=== PATIENT | female | born 1980 | race Caucasian/White ===

== ENCOUNTER → 2018-04-05 | Outpatient (CLI) | payer OTHER | END | disposition home or self-care (01) | LOC: C.LABSPEC 14:34 | PROVIDERS: ATTEND Obstetrics & Gynecology | DX: O09.521 Supervision of elderly multigravida, first trimester (principal); Z3A.00 Weeks of gestation of pregnancy not specified ==

== ENCOUNTER → 2018-04-08 | Outpatient (CLI) | payer OTHER ==
[2018-04-08 16:33] LABS: BASO % 0.2 %; BASO ABS # 0.02 K/uL (0-0.2); EOS ABS # 0.11 K/uL (0-0.5); HEMATOCRIT 35.7 % (37-47); HEMOGLOBIN 12.3 g/dL (12.0-16.0); IG# 0.04 K/uL (0.00-0.02); LYMPH % 27.9 %; LYMPH ABS # 3.14 K/uL (1.2-3.4); MEAN CELL VOLUME 89.3 fL (80-100); MEAN CORPUSCULAR HEMOGLOBIN 30.8 pg (25-34); MEAN CORPUSCULAR HGB CONC 34.5 g/dl (32-36); MEAN PLATELET VOLUME 10.5 fL (7.4-10.4); MONO % 8.1 %; MONO ABS # 0.91 K/uL (0.11-0.59); NEUT % 62.4 %; NEUT ABS # 7.05 K/uL (1.4-6.5); PLATELET COUNT 250 K/uL (130-400); RED CELL DISTRIBUTION WIDTH CV 12.6 % (11.5-14.5); RED CELL DISTRIBUTION WIDTH SD 40.9 fL (36.4-46.3); WHITE BLOOD COUNT 11.27 K/uL (4.8-10.8)
== END | disposition home or self-care (01) ==
LOC: C.LAB1850 15:43
PROVIDERS: ATTEND Obstetrics & Gynecology
DX: O09.521 Supervision of elderly multigravida, first trimester (principal)

== ENCOUNTER 2018-10-24 02:23 | Inpatient (IN) ==
[2018-10-24] MEDS ORDERED: LACTATED RINGER'S 1,000 ML IV PRN ×2 (02:38→03:54)
[2018-10-24] MEDS ORDERED: LACTATED RINGER'S 1,000 ML IV SCH (02:45)
[2018-10-24 03:02] LABS: Hematocrit (blood only) 34.8 % (37-47); Hemoglobin 11.7 g/dL (12.0-16.0); Mean Corpuscular Volume 91.1 fL (80-100); Mean Platelet Volume 10.6 fL (7.4-10.4); Platelet Count 252 K/uL (130-400); RDW Coefficient of Variation 13.5 % (11.5-14.5); RDW Standard Deviation 44.8 fL (36.4-46.3); Red Blood Count 3.82 M/uL (4.2-5.4); White Blood Count 15.11 K/uL (4.8-10.8)
[2018-10-24 03:04] LABS: Mean Corpuscular Hgb Conc 33.6 g/dL (32-36)
[2018-10-24] MEDS ORDERED: BUPIVACAINE 0.25% 30 ML VIAL ONE (03:07)
[2018-10-24] MEDS ORDERED: fentaNYL citrate 100 MCG/2 ML VIAL ONE (03:08)
[2018-10-24] MEDS ORDERED: ePHEDrine sulfate 50 MG/ML AMP ONE (03:08)
[2018-10-24] MEDS ORDERED: fentaNYL 2MCG/ML ROPIV 1.25MG/ML 100 ML BAG EPI ONE (03:08)
--- NOTE | 2018-10-24 03:53 | Anesthesiology Consultation ---
Date of Service October 24, 2018 Assessment & Plan (1) Encounter for pre-operative examination: Chart Review Chart Review: Acceptable Risk for Surgery and Patient NOT seen in Pre Admission Testing Consults Requested none ASA ASA2 Proposed Anesthesia Anesthesia Type: CSE Risk / Benefits Reviewed With: PT / POA / Parent / Guardian, Accepts Plan and Informed Consent Obtained NPO Date Last Intake of Fluids: 10/24/18 Time Last Intake of Fluids: 03:00 Date Last Intake of Solids: 10/23/18 Time Last Intake of Solids: 20:00 History Height/Weight Height: 5 ft 4 in Weight: 78.018 kg Allergies Allergy/AdvReac Type Severity Reaction Status Date / Time No Known Allergies Allergy Verified 10/24/18 03:02 Medications Home Medications Medication Instructions Recorded Confirmed Last Taken folic acid 1 mg PO DAILY 10/24/18 10/24/18 10/23/18 09:00 vit-iron fum-folic ac 1 tab PO DAILY 10/24/18 10/24/18 10/23/18 09:00 [ Vitamin] Active Medications Generic Name Dose Route Start Last Admin Trade Name Tommieq PRN Reason Stop Dose Admin Lactated Ringer's 1,000 mls @ 999 mls/hr 10/24/18 02:38 10/24/18 03:10 Lr IV 11/23/18 02:37 999 mls/hr .Q1H1M PRN Administration (Pre-Anesthesia) Past Medical History Medical History In vitro fertilization with previous hemorrhage received blood transfusion Social History Smoking Status: Never smoker Do You Dip or Chew Tobacco: No Hx Alcohol Use: No Hx Substance Use: No substance use type: does not use Physical Exam Vital Signs Last Vital Signs Temp 36.5 C 10/24/18 03:11 Pulse 86 10/24/18 03:50 BP 94/52 L 10/24/18 03:50 Pulse Ox 97 10/24/18 03:49 Constitutional Gravid abdomen ENMT Mouth: no TMJ abnormality Thyromental Distance: > or= 3.5 Finger Breadths Mallampati Class: II Neck normal visual inspection Respiratory normal respiratory effort Cardiovascular Rate/Rhythm: regular rate and regular rhythm Neurologic moves all extremities Psychiatric Orientation: alert Testing Laboratory Results 10/24/18 02:49
[2018-10-24] MEDS ORDERED: DiphenhydrAMINE HCL 50 MG/ML VIAL IV PRN (03:54)
[2018-10-24] MEDS ORDERED: NALBUPHINE HCL INJ 10 MG/ML AMP IV PRN (03:54)
[2018-10-24] MEDS ORDERED: PROMETHAZINE HCL 6.25 MG in SODIUM CHLORIDE 0.9% 50 ML IV PRN (03:54)
[2018-10-24] MEDS ORDERED: NALOXONE HCL 0.4 MG/1 ML VIAL/CARP IV PRN (03:54)
[2018-10-24] MEDS ORDERED: fentaNYL 2MCG/ML ROPIV 1.25MG/ML 100 ML BAG EPI PRN (03:54)
[2018-10-24] MEDS ORDERED: ePHEDrine sulfate 50 MG/ML AMP IV PRN (03:54)
[2018-10-24] MEDS ORDERED: NALOXONE HCL 1 MG in SODIUM CHLORIDE 0.9% 1000ML 1,000 ML IV PRN (03:54)
[2018-10-24] MEDS ORDERED: ONDANSETRON INJ 2 MG/ML 2 ML VIAL IV PRN (03:54)
[2018-10-24] MEDS ORDERED: OXYTOCIN 30 UNITS/500ML NSS ONE (04:39)
[2018-10-24] MEDS ORDERED: HYDROCORTISONE ACETATE 25 MG SUPP PR PRN (05:26)
[2018-10-24] MEDS ORDERED: BISACODYL 10 MG SUPP PR PRN (05:26)
[2018-10-24] MEDS ORDERED: OXYTOCIN 30 UNITS/500 ML BAG IV PRN (05:26)
[2018-10-24] MEDS ORDERED: SUPERCREAM 0.870% 15 GM JAR EXT PRN (05:26)
[2018-10-24] MEDS ORDERED: BENZOCAINE 20% AER SPR 82.5 GM CAN EXT PRN (05:26)
[2018-10-24] MEDS ORDERED: ACETAMINOPHEN 325 MG TAB PO PRN (05:26)
[2018-10-24] MEDS: PRENATAL VITAMIN 1 TAB PO SCH (07:47)
[2018-10-24] MEDS: DOCUSATE SODIUM 100 MG CAP PO SCH ×2 (07:47→20:36)
--- NOTE | 2018-10-24 09:34 | Anesthesia Procedure Note ---
Date of Service October 24, 2018 Anesthesia Post Epidural Note Vital Signs Vital Signs: Temp Pulse Resp BP Pulse Ox 36.6 C 91 H 18 107/57 L 99 10/24/18 07:00 10/24/18 09:23 10/24/18 08:03 10/24/18 09:23 10/24/18 05:40 Pain Intensity Bilateral Abdomen: Pain Intensity: 0 Notes Mental Status: alert / awake / arousable and participated in evaluation Nausea / Vomiting: adequately controlled Pain: adequately controlled Airway Patency, RR, SpO2: stable & adequate BP & HR: stable & adequate Hydration State: stable & adequate Neuraxial Anesthesia: sensory block resolved Anesthetic Complications: no major complications apparent Epidural: Removed without complications and With tip intact Notes: Pt tolerated well. Epidural removed without complications/tip intact. Bandaid applied to site.
[2018-10-24] MEDS: IBUPROFEN 600 MG TAB PO PRN ×2 (15:39→23:13)
--- NOTE | 2018-10-25 07:25 | Obstetrical Progress Note ---
Date of Service October 25, 2018 Assessment & Plan (1) Status post vaginal delivery: Patient is a 38 year old PPD 1 s/p -Vital signs WNL bp 94/55 T36.5, -Hemoglobin is 11.7 on ppd1. no si/sx of anemia. -Pt is doing clinically well -Continue to encourage ambulation as tolerated, Monitor and control pain with motrin prn, Continue diet as tolerated. -Continue to support and encourage breast feeding -Counseled patient on discharge instructions including Vaginal bleeding, fevers, followup, lifting restrictions, breast feeding, vitamins, and nothing in the vagina for 6 weeks. Pt was agreeable -Plan for d/c today Supervising Physician Co-Signing Physician Notes Patient seen and evaluated and agree with the above assessment and plan Subjective Pt lying in bed with baby, no acute events overnight. Patient is tolerating her diet, ambulating, passing gas and voiding, still no bm. Reports moderate lochia. Denies H/A, chest pain, palpitations and uti syx. No concerns at this time pain is well controlled Physical Exam Vital Signs (Past 24 Hours): Last Vital Signs Temp 36.5 C 10/25/18 03:20 Pulse 88 10/25/18 03:20 Resp 18 10/25/18 03:20 BP 94/55 L 10/25/18 03:20 Pulse Ox 99 10/24/18 12:02 Constitutional: WD/WN, vitals as above Cardiovascular: Extremities: no calf tenderness and no pedal edema Gastrointestinal (Abdomen): normal bowel sounds, soft, nontender, no hepatosplenomegaly (Uterus firm below umbilicus) Skin: no rashes, warm and dry Results & Data Laboratory Results 10/25/18 Range/Units 07:17 WBC Pending RBC Pending Hgb Pending Hct Pending MCV Pending MCH Pending MCHC Pending Plt Count Pending Medications Administered Current Inpatient Medications Acetaminophen (Tylenol) 650 mg PO Q6H PRN PRN Reason: Pain/SOLIS/Fever Stop: 11/23/18 05:25 Benzocaine (Dermoplast Pain Relieving [place]) 1 appln EXT PRN PRN PRN Reason: Perineal Discomfort Stop: 11/23/18 05:25 Last Admin: 10/24/18 07:46 Dose: 82.5 appln Documented by: Bisacodyl (Dulcolax) 10 mg LA DAILY PRN PRN Reason: No BM on 2nd post- day Stop: 11/23/18 05:25 Bisacodyl (Dulcolax) 5 mg PO 1999 [facility] Stop: 10/25/18 20:01 Cocaine HCl (Supercream 0.870%) 1 gm EXT BID PRN PRN Reason: Hemorrhoidal Inflammation Stop: 11/07/18 05:25 Last Admin: 10/24/18 15:44 Dose: 1 gm Documented by: Diphtheria/Pertussis/Tetanus Vacc (Adacel) 0.5 ml IM .ONCE ONE Stop: 10/25/18 09:01 Docusate Sodium (Colace) 100 mg PO BID [facility] Stop: 11/23/18 08:59 Last Admin: 10/24/18 20:36 Dose: Not Given Documented by: Hydrocortisone (Anusol Hc) 25 mg LA BID PRN PRN Reason: Hemorrhoidal Inflammation Stop: 11/23/18 05:25 Lactated Ringer's (Lr) 1,000 mls @ 999 mls/hr IV .Q1H1M PRN PRN Reason: (Pre-Anesthesia) Stop: 11/23/18 02:37 Last Infusion: 10/24/18 04:06 Dose: Infused Documented by: Lactated Ringer's (Lr) 1,000 mls @ 125 mls/hr IV .Q8H [facility] Stop: 10/26/18 02:44 Last Infusion: 10/24/18 05:04 Dose: Infused Documented by: Oxytocin (Pitocin) 30 units in 500 mls @ 333.333 mls/hr IV .Q1H30M PRN; Protocol PRN Reason: BLEEDING CONTROL Stop: 11/23/18 05:25 Ibuprofen (Motrin) 600 mg PO Q4H PRN PRN Reason: Pain/SOLIS/Cramping/Fever Stop: 11/23/18 05:25 Last Admin: 10/24/18 23:13 Dose: 600 mg Documented by: Horacioat Multivit/[place]/Iron/Folic Ac ( Vitamin) 1 tab PO QAM [facility] Stop: 11/23/18 08:59 Last Admin: 10/24/18 07:47 Dose: 1 tab Documented by: Resident Activity Tracking Resident Involvement: Resident Care Provided Care Provided: Adult Hospital Medicine
[2018-10-25 07:26] LABS: Hematocrit (blood only) 31.3 % (37-47); Hemoglobin 10.2 g/dL (12.0-16.0); Mean Corpuscular Hgb Conc 32.6 g/dL (32-36); Mean Corpuscular Volume 93.7 fL (80-100); Mean Platelet Volume 10.1 fL (7.4-10.4); Platelet Count 201 K/uL (130-400); RDW Coefficient of Variation 13.8 % (11.5-14.5); RDW Standard Deviation 47.3 fL (36.4-46.3); Red Blood Count 3.34 M/uL (4.2-5.4); White Blood Count 14.71 K/uL (4.8-10.8)
[2018-10-25] MEDS: IBUPROFEN 600 MG TAB PO PRN (08:18)
[2018-10-25] MEDS: DOCUSATE SODIUM 100 MG CAP PO SCH (08:19)
[2018-10-25] MEDS: PRENATAL VITAMIN 1 TAB PO SCH (08:19)
[2018-10-25] MEDS ORDERED: DIPHTHERIA/TETANUS/PERTUSSIS 0.5 ML SYR/VIAL IM ONE (09:00)
[2018-10-25] MEDS ORDERED: BISACODYL 5 MG TABEC PO SCH (20:00)
--- NOTE | 2018-10-28 23:35 | Delivery Summary ---
DATE OF OPERATION: 10/24/2018 PROCEDURE: Normal spontaneous vaginal delivery. SURGEON: Davis Holbrook MD PREOPERATIVE DIAGNOSES: 1. Single intrauterine at term. 2. Advanced maternal age. 3. Active labor. POSTOPERATIVE DIAGNOSES: Same, delivered. ESTIMATED BLOOD LOSS: 300 mL. DRAINS: None. FLUIDS: Continuous lactated Ringer. URINE OUTPUT: Not measured. COMPLICATIONS: None. FINDINGS: Viable with weight and Apgars pending. INDICATIONS: Ms. Cole is a 38-year-old who presented in active labor. The patient progressed without further augmentation. She received an epidural for anesthesia and progressed to complete-complete +2. DESCRIPTION OF PROCEDURE: The patient progressed to 10 cm dilated, 100% effaced, positive 2 station, pushed over intact perineum with epidural anesthesia and delivered a viable infant with weight and Apgars pending. Head of the delivered in KRISSY position restituted to right transverse. No nuchal cord was noted. Body and shoulders quickly followed. The was noted to be vigorous soon after delivery and a 1-minute delayed cord clamping was initiated. The cord was then double clamped and cut. was allowed to remain on maternal abdomen. Cord blood was obtained. Attention was then turned to delivery of the placenta, it was delivered intact with 3-vessel cord with gentle cord traction. Attention was then turned to the vagina, perineum and cervix where on inspection, there was noted to be no lacerations. The sponge and instrument counts were correct at the completion of the case. I attest to the content of the Intraoperative Record and any orders documented therein. Any exception s are noted below.
== END 2018-10-25 15:50 | disposition home or self-care (01) | DRG 807 ==
LOC: OPB 02:23 → 4S1 02:25 → 4S2 09:30